=== PATIENT | male | born 1965 | race Hispanic/Latino ===

== ENCOUNTER 2017-05-13 12:14 | Outpatient (CLI) | payer OTHER ==
--- NOTE | 2017-05-13 16:19 | XRay Report ---
XRAY BILATERAL ELBOW THREE VIEWS EACH: 05/13/17 12:14:00 CLINICAL: Bilateral elbow pain. FINDINGS: Right: An olecranon enthesophyte with a lucency at the base of the enthesophyte. This may or may not be a fracture since lucencies without fracture have been described in olecranon enthesophytes. There is mild soft tissue swelling at the olecranon spur. No other fracture and no dislocation. A prominent ulnohumeral osteophyte. No joint effusion. Left: No fracture or dislocation. The joint spaces are normal. No joint effusion.Normal soft tissues. IMPRESSION: 1. 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 2. Ulnohumeral joint osteoarthritis. 3. Normal left elbow.
== END 2017-05-13 12:15 | disposition home or self-care (01) ==
LOC: SPVIMAG 12:14
PROVIDERS: ATTEND Orthopaedic Surgery
DX: M19.021 Primary osteoarthritis, right elbow (principal); M25.522 Pain in left elbow